=== PATIENT | female | born 1965 | race Caucasian/White ===

== ENCOUNTER → 2017-03-04 | Outpatient (CLI) | payer OTHER ==
[2015-04-22 00:52] VITALS: BP 128/59
--- NOTE | 2017-03-04 10:13 | KCIC ---
PROCEDURE Cervical spine, three views. HISTORY Pain. FINDINGS Frontal, lateral and odontoid views of the cervical spine are obtained. There is mild cervical kyphosis. There is degenerative endplate remodeling with disc space narrowing and osteophytosis at C5-C6 and C6-C7. IMPRESSION 1. Multilevel degenerative change, predominately at C5-C6 and C6-C7. 2. No acute osseous finding. Electronically signed by: Wendy Goemz (Mar 04, 2017 10:12:17)
== END | disposition home or self-care (01) ==
LOC: KCIC 09:43
PROVIDERS: ATTEND Nurse Practitioner Family
DX: M47.892 Other spondylosis, cervical region (principal); M62.838 Other muscle spasm
CPT/HCPCS: 72040

== ENCOUNTER → 2019-01-12 | Outpatient (CLI) | payer OTHER ==
[2015-04-22 00:52] VITALS: BP 128/59
--- NOTE | 2019-01-12 12:16 | RAD ---
Thyroid ultrasound 01/12/2019 INDICATION: Enlarged thyroid COMPARISON STUDY: None Discussion: Ultrasound evaluation of the thyroid gland was performed. Static images are submitted to PACS. The right thyroid measures 5.2 x 1.8 x 2.2 cm. The left thyroid measures 4.6 x 1.3 x 1.7 cm. Thyroid isthmus measures 2 mm in thickness. Blood flow to the thyroid gland is unremarkable. Within the superior right thyroid is a 1.4 cm complex nodule with internal vascularity. No microcalcification is seen within the nodule. No other focal thyroid nodules are seen. The remainder of the thyroid gland is relatively homogeneous. IMPRESSION: 1. 1.4 cm complex nodule superior right thyroid. Fine-needle aspiration recommended 2. Borderline enlargement of thyroid gland Electronically signed by: Gualberto Vega MD (01/12/2019 12:13 PM) [id number]
== END | disposition home or self-care (01) ==
LOC: US 10:26
PROVIDERS: ATTEND Nurse Practitioner Family
DX: E04.1 Nontoxic single thyroid nodule (principal)
CPT/HCPCS: 76536

== ENCOUNTER → 2019-01-25 | Outpatient (CLI) | payer OTHER ==
[2015-04-22 00:52] VITALS: BP 128/59
--- NOTE | 2019-01-25 10:59 | RAD ---
Indication:PT STATES HAVING RT SHOULDER PAIN, DENIES INJURY OR TRAUMA. PAIN X 2 MONTHS TECHNIQUE: 3 views of the right shoulder COMPARISON:None FINDINGS/ impression:No acute fracture or dislocation. Mild glenohumeral and acromioclavicular joint osteoarthritis. Right lung is clear. Electronically signed by: Filiberto Tripp DO (01/25/2019 10:56 AM) [facility]
== END | disposition home or self-care (01) ==
LOC: RAD 10:13
PROVIDERS: ATTEND Nurse Practitioner Family
DX: M19.011 Primary osteoarthritis, right shoulder (principal)
CPT/HCPCS: 73030

== ENCOUNTER → 2019-04-10 | Outpatient (CLI) | payer OTHER, SELFPAY ==
[2015-04-22 00:52] VITALS: BP 128/59
--- NOTE | 2019-04-10 14:51 | KCIC ---
MR of the right shoulder HISTORY: Right shoulder pain. No recent injury. TECHNIQUE: Routine multiplanar sequences are obtained. FINDINGS: Degenerative changes at the acromioclavicular joint with mild undersurface hypertrophy. Rotator cuff tendinosis. There is a very deep at least 90% articular side tear of the anterior supraspinatus footprint, series 6, image 8 and 9. This extends very nearly through the bursal layer but there does appear to be a very thin layer of intact tissue here. Subjacent humeral head cyst. Mild subdeltoid bursal effusion. Generalized rotator cuff tendinosis. Trace glenohumeral joint effusion. Mild signal within the posterosuperior labrum which appears slightly small and rounded. There is also a small defect at its base. Bodies likely indicate a small degenerative tear. There are degenerative changes at the glenohumeral joint. Biceps tendon is intact. No bone destruction. No acute fracture. No acute soft tissue abnormality. IMPRESSION: 1. Small but very deep articular side tear of the anterior supraspinatus tendon. 2. Small degenerative tear of the posterosuperior labrum. Electronically signed by: Jefferson Green MD (04/10/2019 2:48 PM) [id number]
== END | disposition home or self-care (01) ==
LOC: KCIC MRI 09:04
PROVIDERS: ATTEND Nurse Practitioner Family
DX: M75.101 Unspecified rotator cuff tear or rupture of right shoulder, not specified as traumatic (principal); M19.011 Primary osteoarthritis, right shoulder; M25.411 Effusion, right shoulder
CPT/HCPCS: 73221

== ENCOUNTER → 2019-10-24 | Outpatient (CLI) | payer OTHER ==
[2015-04-22 00:52] VITALS: BP 128/59
--- NOTE | 2019-10-24 12:16 | KCIC ---
EXAM: Left ankle, 3 views; left calcaneus, 2 views. HISTORY: Pain. COMPARISON: None. FINDINGS: 3 views of the left ankle and 2 views of the left calcaneus are obtained. There is no fracture, dislocation or subluxation. There is enthesopathy at the Achilles tendon insertion. There is a small plantar spur. There is a corticated ossicle overlying the talonavicular joint. This is accessory ossicle or the sequela of remote injury, not formally assessed on this exam. No osteochondral lesion is seen. IMPRESSION: 1. No acute osseous finding. 2. Small plantar spur and enthesopathy at the Achilles tendon insertion. Electronically signed by: Wendy Gomez MD (10/24/2019 12:13 PM) [facility]
== END | disposition home or self-care (01) ==
LOC: KCIC 10:11
PROVIDERS: ATTEND Nurse Practitioner Family
DX: M77.32 Calcaneal spur, left foot (principal); M76.62 Achilles tendinitis, left leg
CPT/HCPCS: 73610; 73650

== ENCOUNTER → 2021-10-21 | Outpatient (CLI) | payer OTHER ==
[2015-04-22 00:52] VITALS: BP 128/59
--- NOTE | 2021-10-21 16:16 | KCIC ---
Site ID: [id number] EXAMINATION: XR SHOULDER_LEFT 2+ VIEWS. HISTORY: 55 years Female Reason: LEFT SHOULDER PAIN/LROM X'S 2 MONTHS: . COMPARISON: None. FINDINGS: No fracture, dislocation or radiopaque foreign body. There is subchondral sclerosis seen and the m inimal inferior osteophytes noted at the acromioclavicular joint. The glenohumeral joint demonstrate no significant arthritic changes. IMPRESSION: Degenerative changes at the acromioclavicular joint. Electronically signed by: Sly Murrell MD (10/21/2021 4:14 PM) [id number]
== END ==
LOC: KCIC 10:29
PROVIDERS: ATTEND Nurse Practitioner Family
DX: M19.012 Primary osteoarthritis, left shoulder (principal)
CPT/HCPCS: 73030